=== PATIENT | female | born 1955 | race African-American/Black ===

== ENCOUNTER 2017-08-06 14:16 | Emergency (ER) | payer MEDICAID, OTHER ==
[~2017-08-06] VITALS: Ht 175.3 cm; Wt 102.1 kg
[2017-08-06 14:19] VITALS: BP 138/85
[2017-08-06] MEDS ORDERED: KETOROLAC TROMETHAMINE INJ 60 MG/2 ML VIAL IM ONE ×2 (14:41→15:00)
--- NOTE | 2017-08-06 14:48 | NUR ---
PILING SETTER AT BEDSIDE
== END 2017-08-06 15:26 | disposition home or self-care (01) ==
LOC: ER 14:18
DX: M25.562 Pain in left knee (principal); M79.605 Pain in left leg; H40.9 Unspecified glaucoma
CPT/HCPCS: 73564; 96372; 99284; A4606; J1885; Z7610

== ENCOUNTER 2018-08-05 10:37 | Emergency (ER) | payer OTHER ==
[~2018-08-05] VITALS: Ht 175.3 cm; Wt 102.1 kg
--- NOTE | 2018-08-05 10:59 | NUR ---
BIB SELF, C/O LOW BACK PAIN & RT LOW ABD PAIN. STS JUST FINISHED TAKING CIPRO FOR UTI, TO ER BED 10, HOOKED TO MONITOR, AWAITING MD CABRERA
--- NOTE | 2018-08-05 11:00 | NUR ---
DR CAUSEY AT BEDSIDE
--- NOTE | 2018-08-05 11:10 | NUR ---
ONGOING TRANSVAGINAL EDDIE. NURSE AT BEDSIDE
[2018-08-05 11:33] LABS: APPEARANCE,URINE Clear (CLEAR); BILIRUBIN,URINE Negative (NEGATIVE); BLOOD, URINE Negative Ery/uL (NEGATIVE); COLOR,URINE Yellow (YELLOW); KETONES,URINE Negative (NEGATIVE); LEUKOCYTE ESTERASE ,URINE Negative (NEGATIVE); NITRITE, URINE Negative (NEGATIVE); PH,URINE 5.5 (5.0-8.0); PROTEIN,URINE Negative (NEGATIVE); UGLUCOSE Negative (NEGATIVE); UROBILINOGEN,URINE 0.2 EU/dL (0.2)
[2018-08-05 11:58] VITALS: BP 149/72
--- NOTE | 2018-08-05 11:58 | NUR ---
Patient discharged to home in stable condition. Written and verbal after care instructions given. Patient verbalizes understanding of instruction.
== END 2018-08-05 11:55 | disposition home or self-care (01) ==
LOC: ER 10:38
DX: R10.2 Pelvic and perineal pain (principal); Z87.440 Personal history of urinary (tract) infections
CPT/HCPCS: 76856; 81001; 99284; A4606; J7040; 81000-TC